=== PATIENT | female | born 1995 | race Caucasian/White ===

== ENCOUNTER 2018-10-20 04:55 | Outpatient (CLI) | payer MEDICAID ==
--- NOTE | 2018-10-20 07:11 | PN ---
Triage Information Date/Time October 20, 2018 Reason for visit: Uterine contractions Weeks of Gestation 40w 1d /Para 1/0 Diabetes: none Hypertention: none Additional information Pt had a little spotting and reports contractions q 5 minutes. No leaking. +FM. Objective T=98.8 BP 106/60 Heart Rate: 130's Heart Rate Comments Accels to 150 BPM. No decels. Contractions: 6-10 Minutes Apart Exam 70%/3 cm/-2/intact. Disposition: Discharge Assessment/Plan A: IUP at 40w 1d. Early labor. P: Pt appears very comfortable and is eating and smiling. She has a f/u appt tomorrow with Dr Farley. Reviewed labor precautions and encouraged pt to go home and return when the contractions are closer and stronger. Pt indicated understanding. RICA IBRAHIM MD Oct 20, 2018 07:11
--- NOTE | 2018-10-20 09:47 | TRIAGE ---
OB Triage Datetime Report Generated by CPN: 10/20/2018 09:47 Datetime: 10/20/2018 05:07 EGA: 40.1 Datetime: 10/20/2018 05:00 Time of Arrival: 10/20/2018 04:45 Arrived By: Wheelchair Arrived From: Home Chief Complaint: c/o ucs and discharge Movement: Present Contractions: Regular Time Contractions Began: 10/20/2018 02:30 Contractions: q5 Rupture of Membranes: Denies Vaginal Bleeding: Scant Vaginal Discharge: Present Recent Sexual Intercouse: Denies Abdominal Trauma: Not Applicable Patient Complaints: Cramping Time Provider Notified: 10/20/2018 06:00 Provider Notified: Dr Abel Initial Plan: ROMEL WILEY
== END 2018-10-20 07:05 | disposition home or self-care (01) ==
LOC: L-D 04:55 → OBT 04:55
PROVIDERS: ATTEND Obstetrics & Gynecology
DX: O62.9 Abnormality of forces of labor, unspecified (principal); Z3A.40 40 weeks gestation of pregnancy
CPT/HCPCS: G0463